=== PATIENT | female | born 1965 | race Caucasian/White ===

== ENCOUNTER 2019-09-04 14:15 | Outpatient (CLI) | payer BC, SELFPAY ==
--- NOTE | ~2019-09-04 | XR_ITS ---
XR chest 2V DATE: 09/04/2019 14:33 INDICATION: Cough, chest tightness, congestion TECHNIQUE: PA and lateral views COMPARISON: None FINDINGS: Normal heart size. No hilar or mediastinal enlargement. No pulmonary infiltrate or consolid ation, pleural effusion or pulmonary vascular congestion or pneumothorax. IMPRESSION: No active cardiopulmonary disease Reviewed, dictated and finalized at location B. RTISING SALES ASSISTANT
== END 2019-09-04 14:16 | disposition home or self-care (01) ==
LOC: ANHIMG 14:21
PROVIDERS: PCP Internal Medicine; Visit Provider Internal Medicine
DX: R05 Cough (principal)
CPT/HCPCS: 71046

== ENCOUNTER 2024-04-07 15:15 | Outpatient (CLI) | payer BC, SELFPAY ==
--- NOTE | ~2024-04-07 | XR_ITS ---
CHEST RADIOGRAPH, PA AND LATERAL CLINICAL HISTORY: Acute exacerbation of COPD . COMPARISON: 09/04/2019 TECHNIQUE: PA and lateral views of the chest. FINDINGS The cardiomediastinal silhouette is unremarkable. The lungs are clear. Visualized osseous structures and soft tissues are unremarkable. IMPRESSION: No focal infiltrate or effusion. Reviewed, dictated and finalized at location A.
== END 2024-04-07 15:16 | disposition home or self-care (01) ==
LOC: MICIMG 15:17
PROVIDERS: PCP Internal Medicine; Visit Provider Internal Medicine
DX: J44.1 Chronic obstructive pulmonary disease with (acute) exacerbation (principal)
CPT/HCPCS: 71046

== ENCOUNTER 2024-07-29 07:35 | Outpatient (CLI) | payer BC, SELFPAY ==
--- NOTE | ~2024-07-29 | US_ITS ---
Limited Abdominal Sonogram: Real-time sonographic imaging of the right upper quadrant was performed. Clinical History: Abnormal findings on diagnostic imaging Findings: The liver appears normal with no evidence of mass lesion or bile duct dilatation. Main por nelia vein demonstrates normal direction of flow. The gallbladder is well distended, and appears normal with no evidence of gallstone or wall thickening. The common bile duct measures 3 mm. The visualize d pancreas, aorta, and IVC are unremarkable. Visualized right kidney unremarkable. Impression: No significant abnormality seen. Reviewed, dictated and finalized at location M. YING MACHINE OPERATOR Impression: No significant abnormality seen.
== END 2024-07-29 07:36 | disposition home or self-care (01) ==
LOC: MICIMG 07:36
PROVIDERS: PCP Internal Medicine; Visit Provider Internal Medicine
DX: R93.89 Abnormal findings on diagnostic imaging of other specified body structures (principal)
CPT/HCPCS: 76705

== ENCOUNTER 2025-02-01 08:23 | Emergency (ER) | payer BC, SELFPAY ==
[2025-02-01 08:40] VITALS: BP 148/78; PULSE 96; RESP 18; TEMP 36.8; O2SAT 99
--- NOTE | 2025-02-01 09:02 | ED.GENADULT ---
HPI - General Adult General Chief complaint: Urogenital-Female Stated complaint: uti Time Seen by Provider: 02/01/25 08:55 History of Present Illness HPI narrative: 59-year-old female present to the emergency department for evaluation for recurrent urinary tract infection symptoms. Patient states she has had multiple UTIs and does have multiple drug allergies. Patient has not had follow-up with Urology. Patient was just treated with fosfomycin on 01/20 and patient began having urinary symptoms again. Patient denies any associated nausea vomiting diarrhea or flank pain. Patient denies any prior history of ureteral calculi. Patient states he does have back pain but this is attributed to her SI joint. At time of evaluation patient is in no distress. Related Data Home Medications ?Medication ?Instructions ?Recorded ?Confirmed ?Last Taken ?Type albuterol sulfate 2.5 mg/3 mL 2.5 mg inhalation Q4H PRN SOB 05/08/19 04/07/24 Unknown History (0.083 %) solution for nebulization albuterol sulfate 90 mcg/actuation 2 puff inhalation QID PRN SOB 05/08/19 04/07/24 Unknown History aerosol inhaler (ProAir HFA) cetirizine 10 mg tablet 10 mg PO DAILY 05/08/19 04/07/24 Unknown History linaclotide 145 mcg capsule 145 mcg PO DAILY 05/08/19 04/07/24 Unknown History (Linzess) bupropion HCl 75 mg tablet 75 mg PO TID 06/12/22 04/07/24 Unknown History montelukast 10 mg tablet 10 mg PO DAILY 04/07/24 04/07/24 Unknown History (Singulair) Allergies Allergy/AdvReac Type Severity Reaction Status Date / Time clarithromycin (From Biaxin) Allergy Mild Hives Verified 02/01/25 08:47 Penicillins Allergy Mild Hives Verified 02/01/25 08:47 Sulfa (Sulfonamide Allergy Rash Verified 02/01/25 08:47 Antibiotics) erythromycin base AdvReac Intermediate Gastrointestinal Verified 02/01/25 08:47 Upset Review of Systems Review of Systems: All systems reviewed & are unremarkable except as noted in HPI and below PMFSH Past Medical History Medical History (Updated 02/01/25 @ 09:40 by Bola Vázquez MD) Screening mammogram, encounter for Vaginal lesion Vaginal lesion Depression COPD (chronic obstructive pulmonary disease) Asthma Anxiety Surgical History Surgical History Hx of colonoscopy History of cataract surgery History of tubal ligation Family History Family History Other Diabetes mellitus Heart disease Hypertension Social History Social History (Updated 04/07/24 @ 10:12 by THIEN Bob) Smoking packs per day: 0.50 Smoking cigarettes per day: 10.0 Years smoked: 30 Smoking pack-years: 15.00 Smoking status: Current some day smoker Tobacco type: cigarettes Second hand tobacco smoke exposure: Yes Alcohol intake: former Alcohol use details: rarely Substance use: current Substance use type: marijuana Other substance usage details: rarely Do You Feel Safe in your Home?: Yes Lack of Transportation: No Lack of Food: Never True Current Housing: I Have Housing Concerned About Future Housing: No Difficulty Paying Gas/Electric Bills: No Difficulty Paying for Meds: No Currently Unemployed: No Education: High School Diploma/GED Difficulty w/ Childcare or Family Care: No Living arrangements: with family Additional living arrangements comments: Occupation/Education: occupation Additional occupation/education comments: [employer] Gender identity (if verbalized by the patient): Female Sexual Orientation (if Verbalized by the Patient): Straight or Heterosexual Exam Narrative: APPEARANCE: Well appearing, no pain, no distress, well-nourished. HEAD: normocephalic, atraumatic. EYES: PERRLA/EOMI, conjunctivae clear. NOSE: Normal no drainage EARS:TMS clear with good light reflex. THROAT: Pharynx clear, no exudate. NECK: Supple. No adenopathy, no masses. RESPIRATORY: Airway patent, respirations nonlabored. Clear to auscultation bilaterally, no rales, rhonchi, wheezing. CARDIOVASCULAR: Regular rate and rhythm without murmurs rubs or gallops. ABDOMINAL: Soft, nontender, nondistended, normal bowel sounds MUSCULOSKELETAL: Moves all extremities. Strength/ROM intact, No edema, No calf tenderness. NEURO: Alert. Cranial nerves II through XII intact. Good gait. Good coordination SKIN: Warm, dry. Normal Color Course Vital Signs Vital signs: Vital Signs Temperature 98.3 F 02/01/25 08:40 Pulse Rate 96 02/01/25 08:40 Respiratory Rate 18 02/01/25 08:40 Blood Pressure 148/78 H 02/01/25 08:40 Pulse Oximetry 99 02/01/25 08:40 Oxygen Delivery Room Air 02/01/25 08:40 Temperature 98.3 F 02/01/25 08:40 Pulse Rate 96 02/01/25 08:40 Respiratory Rate 18 02/01/25 08:40 Blood Pressure 148/78 H 02/01/25 08:40 Pulse Oximetry 99 02/01/25 08:40 Oxygen Delivery Room Air 02/01/25 08:40 Medical Decision Making MDM Narrative Medical decision making narrative: 59-year-old female presented emergency department for evaluation for urinary symptoms. Patient's urine is concerning for urinary tract infection. Patient was restarted on her possible ice in an urine culture was ordered. Patient was provided urology follow-up. Patient was updated results of the workup and recommendation for follow-up. All questions concerns were addressed patient is well-appearing at time of discharge Differential Diagnosis Differential Diagnosis: UTI, ureteral calculi, kidney stone Vital Signs Vital Signs: Vital Signs Temperature 98.3 F 02/01/25 08:40 Pulse Rate 96 02/01/25 08:40 Respiratory Rate 18 02/01/25 08:40 Blood Pressure 148/78 H 02/01/25 08:40 Pulse Oximetry 99 02/01/25 08:40 Oxygen Delivery Room Air 02/01/25 08:40 Temperature 98.3 F 02/01/25 08:40 Pulse Rate 96 02/01/25 08:40 Respiratory Rate 18 02/01/25 08:40 Blood Pressure 148/78 H 02/01/25 08:40 Pulse Oximetry 99 02/01/25 08:40 Oxygen Delivery Room Air 02/01/25 08:40 Lab Data Lab results reviewed: Yes I reviewed the patient's lab results. Labs: Lab Results 02/01/25 Range/Units 09:21 Urine Color Amelia H (Yellow) Urine Appearance Cloudy H (Clear) Urine pH TNP Ur Specific [place] TNP Urine Protein TNP Urine Glucose (UA) TNP Urine Ketones TNP Ur Blood (Man) TNP Urine Nitrate TNP Urine Bilirubin TNP Urine Urobilinogen TNP Add Ur Microanalysis Reviewed Leukocyte Esterase Rfl TNP Urine RBC 0-2 (0-2) /hpf Urine WBC >100 H (0-3) /hpf Ur Squamous Epith Cells None seen (Few) /hpf Urine Bacteria None seen /hpf Urine Casts 0-2 Discharge Plan Discharge Clinical Impression: UTI (urinary tract infection) Patient Disposition: Home Condition: Stable Instructions: Antibiotic Form, Urinary Tract Infection in Women (ED) Additional Instructions: Drink plenty of water, Pyridium as needed for urinary symptoms. Antibiotic as directed until completed. You will need a follow-up with Urology for your frequent urinary tract infections. Patient Language: [place] Prescriptions: New fosfomycin tromethamine 3 gram packet 3 g PO ONCE Qty: 1 0RF phenazopyridine [Pyridium] 100 mg tablet 100 mg PO TID PRN (Reason: pain) Qty: 6 0RF No Action bupropion HCl 75 mg tablet 75 mg PO TID Rx Instructions: administer 6 hours apart montelukast [Singulair] 10 mg tablet 10 mg PO DAILY albuterol sulfate 2.5 mg /3 mL (0.083 %) Solution For Nebulization 2.5 mg INHALATION Q4H PRN (Reason: SOB) cetirizine 10 mg Tablet 10 mg PO DAILY albuterol sulfate [ProAir HFA] 90 mcg/actuation Hfa Aerosol Inhaler 2 puff INHALATION QID PRN (Reason: SOB) Linzess 145 mcg Capsule 145 mcg PO DAILY Follow-up/Referrals: Bebeto,MD Jaskaran [Primary Care Provider] - Spencer Plaza MD [Physician] -
[2025-02-01 09:35] LABS: Add Urine Microscopic? YES; Appearance Urine Cloudy (Clear); Need Manual Microscopic Reviewed; Non Pathogenic Casts 0-2
[2025-02-01] MEDS: PHENAZOPYRIDINE HCL 100 MG TABLET PO (09:52)
== END 2025-02-01 10:06 | disposition home or self-care (01) ==
PROVIDERS: Emergency Provider Emergency Medicine; PCP Internal Medicine
DX: N39.0 Urinary tract infection, site not specified (principal); J45.909 Unspecified asthma, uncomplicated; F41.9 Anxiety disorder, unspecified; F32.A Depression, unspecified
CPT/HCPCS: 81001; 87086; 99283; A9270